=== PATIENT | female | born 1955 | race Two or more races ===

== ENCOUNTER 2025-07-11 06:31 | Emergency (ER) | payer BC, MEDICAID ==
[~2025-07-11] VITALS: Ht 154.9 cm; Wt 65.8 kg
[2025-07-11 07:05] VITALS: BP 124/72; TEMP 97.9
[2025-07-11] MEDS ORDERED: GABA-532 PO (07:16)
[2025-07-11] MEDS ORDERED: KETOROLAC TROMETHAMINE INJ 30 MG/ML VIAL ONE (07:25)
[2025-07-11] MEDS: KETOROLAC TROMETHAMINE INJ 30 MG/ML VIAL IM ONE (07:30)
[2025-07-11 07:39] VITALS: O2SAT 100
== END 2025-07-11 08:03 | disposition home or self-care (01) ==
LOC: ER 06:36
DX: M54.50 Low back pain, unspecified (principal); F17.200 Nicotine dependence, unspecified, uncomplicated; G89.29 Other chronic pain; Z79.899 Other long term (current) drug therapy; Z88.8 Allergy status to other drugs, medicaments and biological substances
CPT/HCPCS: 99283; 96372; J1885